=== PATIENT | female | born 1935 | race Caucasian/White ===

== ENCOUNTER 2019-11-07 02:20 | Observation (INO) | payer MEDICARE, BC ==
[2019-11-07] MEDS ORDERED: Sodium Chloride 0.9% 10 ML Syringe FLUSH PRN (02:30)
[2019-11-07] MEDS: Sodium Chloride 0.9% 1,000 ML IV SCH ×2 (03:01→07:41)
[2019-11-07] MEDS: Ondansetron 4 MG/2 ML SDV IVPUSH ONE (03:03)
--- NOTE | 2019-11-07 03:04 | EDM.PDOC ---
ED HPI GENERAL MEDICAL PROBLEM - General Stated Complaint: PASSED OUT Time Seen by Provider: 11/07/19 02:35 History Limitations: Reports: No Limitations - History of Present Illness INITIAL COMMENTS - FREE TEXT/NARRATIVE: Raysa presented having passed out. Her daughter witnessed two episodes a few minutes apart,while trying to get out of bed.It lasted seconds,but she appeared to be stretching,and having a seizure like activity.She complains of active diarrhea and vomiting since last evening.No fever,SOB,or chest pain.Raysa has a a h/o IBS,and a similar presentation of syncope 2 years ago while living in [place]. - Related Data Allergies Allergy/AdvReac Type Severity Reaction Status Date / Time Penicillins Allergy Rash Verified 11/07/19 03:10 Home Meds: Home Meds NK [No Known Home Meds] 11/07/19 [History] ED ROS GENERAL - Review of Systems Review Of Systems: Comprehensive ROS is negative, except as noted in HPI. ED EXAM, GI/ABD - Physical Exam Exam: See Below Exam Limited By: No Limitations General Appearance: Alert, Active Emesis Eyes: Bilateral: Normal Appearance, EOMI Ears: Normal External Exam, Normal Canal, Hearing Grossly Normal, Normal TMs Nose: Normal Inspection, Normal Mucosa, No Blood Throat/Mouth: Normal Inspection, Normal Lips, Normal Teeth, Normal Gums, Normal Oropharynx, Normal Voice, No Airway Compromise Head: Atraumatic Neck: Normal Inspection Respiratory/Chest: No Respiratory Distress, Lungs Clear Cardiovascular: Systolic Murmur. No: No Murmur, Tachycardia GI/Abdominal Exam: Soft, Non-Tender Extremities: Normal Inspection Neurological: Alert Psychiatric: Normal Affect Skin Exam: Warm Lymphatic: No Adenopathy EKG INTERPRETATION Rhythm: NSR Course - Orders/Labs/Meds Orders: Active Orders 24 hr Category Date Time Status EKG Documentation Completion [RC] ASDIRECTED Care 11/07/19 02:30 Active Sodium Chloride 0.9% [Normal Saline] 1,000 ml Med 11/07/19 03:00 Active IV ASDIRECTED Sodium Chloride 0.9% [Saline Flush] Med 11/07/19 02:30 Active 10 ml FLUSH ASDIRECTED PRN Peripheral IV Insertion Adult [OM.PC] Routine Oth 11/07/19 02:30 Ordered EKG 12 Lead [EK] Routine Ther 03/13/20 02:29 Ordered Medication Orders Sodium Chloride (Normal Saline) 1,000 mls @ 500 mls/hr IV ASDIRECTED MICHAEL Sodium Chloride (Saline Flush) 10 ml FLUSH ASDIRECTED PRN PRN Reason: Keep Vein Open Labs: Laboratory Tests 11/07/19 11/07/19 11/07/19 Range/Units 02:40 02:40 02:40 WBC 12.3 H (4.5-12.0) X10-3/uL RBC 4.85 (3.23-5.20) x10(6)uL Hgb 14.0 (11.5-15.5) g/dL Hct 42.4 (30.0-51.3) % MCV 87.5 (80-96) fL MCH 28.9 (27.7-33.6) pg MCHC 33.1 (32.2-35.4) g/dL RDW 13.6 (11.5-15.5) % Plt Count 249 (125-369) X10(3)uL MPV 9.1 (7.4-10.4) fL Neut % (Auto) 86.8 H (46-82) % Lymph % (Auto) 9.2 L (13-37) % [place] % (Auto) 2.5 L (4-12) % Eos % (Auto) 1 (1.0-5.0) % Baso % (Auto) 1 (0-2) % Neut # (Auto) 10.7 H (1.6-8.3) # Lymph # (Auto) 1.1 (0.6-5.0) # [place] # (Auto) 0.3 (0.0-1.3) # Eos # (Auto) 0.1 (0.0-0.8) # Baso # (Auto) 0.1 (0.0-0.2) # Sodium 139 (135-145) mmol/L Potassium 4.2 (3.5-5.3) mmol/L Chloride 101 (100-110) mmol/L Carbon Dioxide 25 (21-32) mmol/L BUN 16 (7-18) mg/dL Creatinine 0.9 (0.55-1.02) mg/dL Est Cr Clr Drug Dosing TNP Estimated GFR (MDRD) 60 (>60) BUN/Creatinine Ratio 17.8 (9-20) Glucose 183 H (80-116) mg/dL Calcium 8.8 (8.6-10.2) mg/dL Total Bilirubin 0.7 (0.1-1.3) mg/dL AST 14 (5-25) IU/L ALT 16 (12-36) U/L Alkaline Phosphatase 96 (56-112) IU/L Troponin I < 4.0 L (4.0-60.3) pg/mL Total Protein 8.0 (6.0-8.0) g/dL Albumin 3.9 (3.2-4.6) g/dL Globulin 4.1 g/dL Albumin/Globulin Ratio 1.0 Meds: Medications Generic Name Dose Route Start Last Admin Trade Name Freq PRN Reason Stop Dose Admin Sodium Chloride 1,000 mls @ 500 mls/hr 11/07/19 03:00 Normal Saline IV ASDIRECTED MICHAEL Sodium Chloride 10 ml 11/07/19 02:30 Saline Flush FLUSH ASDIRECTED PRN Keep Vein Open Discontinued Medications Generic Name Dose Route Start Last Admin Trade Name Freq PRN Reason Stop Dose Admin Ondansetron HCl 4 mg 11/07/19 02:48 Zofran IVPUSH 11/07/19 02:49 ONETIME ONE Departure - Departure Time of Disposition: 03:14 Disposition: Refer to Observation Clinical Impression: Vasovagal syncope, Acute gastroenteritis - Discharge Information Referrals: PCP,None [Primary Care Provider] - Sepsis Event Note - Focused Exam Date Exam was Performed: 11/07/19 Time Exam was Performed: 03:12 - Problem List & Annotations (1) Vasovagal syncope SNOMED Code(s): 143269405 Code(s): R55 - SYNCOPE AND COLLAPSE Status: Acute Current Visit: Yes (2) Acute gastroenteritis SNOMED Code(s): 74836593 Code(s): K52.9 - NONINFECTIVE GASTROENTERITIS AND COLITIS, UNSPECIFIED Status: Acute Current Visit: Yes - Problem List Review Problem List Initiated/Reviewed/Updated: Yes - My Orders Last 24 Hours: My Active Orders 11/07/19 02:29 EKG 12 Lead [EK] Routine 11/07/19 02:30 EKG Documentation Completion [RC] ASDIRECTED Sodium Chloride 0.9% [Saline Flush] 10 ml FLUSH ASDIRECTED PRN Peripheral IV Insertion Adult [OM.PC] Routine 11/07/19 03:00 Sodium Chloride 0.9% [Normal Saline] 1,000 ml IV ASDIRECTED - Assessment/Plan Last 24 Hours: My Active Orders 11/07/19 02:29 EKG 12 Lead [EK] Routine 11/07/19 02:30 EKG Documentation Completion [RC] ASDIRECTED Sodium Chloride 0.9% [Saline Flush] 10 ml FLUSH ASDIRECTED PRN Peripheral IV Insertion Adult [OM.PC] Routine 11/07/19 03:00 Sodium Chloride 0.9% [Normal Saline] 1,000 ml IV ASDIRECTED Plan: Admit,with remote tele. CT in AM.Fluids,Zofran. NPO
[2019-11-07] MEDS ORDERED: Ondansetron 4 MG/2 ML SDV IV PRN (03:15)
--- NOTE | 2019-11-07 10:00 | CT ---
INDICATION: Syncopal episode last night, question seizure. CT HEAD WITHOUT CONTRAST: Spiral 2.75 mm axial sections were obtained through the brain without contrast with sagittal and coronal reconstructions, 11/07/19 - no comparisons. Total exam DLP was 1244.99 mGy-cm. [id number] degenerative changes are noted at the odonto-atlantean joint. The paranasal sinuses were well aerated. The mastoid air cells were well aerated. No definite cranial abnormality was seen. Calcifications are noted in the internal carotid arteries. The orbits appear to be intact. No shift in midline structures was identified. The ventricles are somewhat prominent, the right lateral ventricle more so than the left, compatible with central atrophy of a mild degree, and the patient's age. There is suggestion of some very minimal areas of decreased density in the white matter, which may represent a mild degree of microvascular disease. However, no bleeding, hematoma or definite acute intracranial abnormality was identified otherwise. IMPRESSION: 1. No acute intracranial abnormality. 2. Cerebral vascular disease with question of very minimal microvascular disease-type changes in the white matter. 3. Central atrophy asymmetrical with more atrophic change suggested on the right with asymmetry of the lateral ventricles. Report was called to Dr. Bartholomew at 09:31 hours. [facility]ITAL[facility]
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
== END 2019-11-07 12:20 | disposition home or self-care (01) ==
LOC: FB.ED 02:20 → FB.MS 03:20
PROVIDERS: ADMIT Family Medicine; ATTEND Family Medicine
DX: A05.9 Bacterial foodborne intoxication, unspecified (principal); R55 Syncope and collapse; E66.9 Obesity, unspecified; Z88.0 Allergy status to penicillin; Z88.8 Allergy status to other drugs, medicaments and biological substances; Z68.30 Body mass index [BMI] 30.0-30.9, adult; Z90.49 Acquired absence of other specified parts of digestive tract; Z98.890 Other specified postprocedural states
CPT/HCPCS: 36415; 70450; 80048; 80053; 84484; 85025; 93005; 96361; 96374; 99234; 99284; 99285-25; G0378; J2405; J7030

== ENCOUNTER 2022-01-26 10:26 | Emergency (ER) | payer MEDICARE, OTHER ==
[2022-01-26] MEDS ORDERED: Ketorolac 30 MG/ML SDV IM ONE (10:59)
[2022-01-26] MEDS ORDERED: traMADol 50 MG Tab PO ONE (10:59)
[2022-01-26] MEDS ORDERED: Acetaminophen 500 MG Tab PO ONE (10:59)
[2022-01-26] MEDS ORDERED: Ondansetron 4 MG Tab.DIS PO STA (11:01)
[2022-01-26] MEDS ORDERED: Promethazine 25 MG/ML SDV IM SCH ×2 (12:15)
== END 2022-01-26 13:35 | disposition home or self-care (01) ==
LOC: FB.ED 10:26
DX: G89.29 Other chronic pain (principal); M54.42 Lumbago with sciatica, left side; E66.9 Obesity, unspecified; Z68.30 Body mass index [BMI] 30.0-30.9, adult; Z88.5 Allergy status to narcotic agent; Z88.0 Allergy status to penicillin; Z79.899 Other long term (current) drug therapy; Z90.49 Acquired absence of other specified parts of digestive tract; Z90.710 Acquired absence of both cervix and uterus
CPT/HCPCS: 96372; 99283; 99284; A9270-GY; J1885; J2550; Q0162

== ENCOUNTER 2022-01-26 20:37 | Emergency (ER) | payer MEDICARE, OTHER ==
[2022-01-26] MEDS ORDERED: Sodium Chloride 0.9% 10 ML Syringe FLUSH PRN (21:19)
[2022-01-26] MEDS ORDERED: Ondansetron 4 MG/2 ML SDV IVPUSH ONE (21:20)
[2022-01-26] MEDS ORDERED: Sodium Chloride 0.9% 1,000 ML IV SCH (21:30)
== END 2022-01-26 23:40 | disposition home or self-care (01) ==
LOC: FB.ED 20:37
DX: M54.41 Lumbago with sciatica, right side (principal); T40.425A Adverse effect of tramadol, initial encounter; E66.9 Obesity, unspecified; Z68.30 Body mass index [BMI] 30.0-30.9, adult; Z88.0 Allergy status to penicillin; Z88.5 Allergy status to narcotic agent
CPT/HCPCS: 36415; 80048; 85025; 96374; 99284-25; J2405; J3490; J7030

== ENCOUNTER 2023-02-28 12:17 | Inpatient (IN) | payer MEDICARE, OTHER ==
[2023-02-28 13:01] LABS: BASOPHILS ABSOLUTE AUTO 0.1 x10-3/uL (0.0-0.1); BASOPHILS PERCENT AUTO 0.7 % (0.2-1.5); EOSINOPHILS PERCENT AUTO 0.2 % (0.6-8.1); HEMOGLOBIN 12.7 g/dL (11.4-15.5); LYMPHOCYTES PERCENT AUTO 20.8 % (18.4-52.1); MEAN CORPUSCULAR HEMOGLOBIN 29.4 pg (23.9-33.9); MEAN CORPUSCULAR HGB CONC 34.4 g/dL (31.9-34.8); MEAN CORPUSCULAR VOLUME 85.4 fL (76.7-100.5); MEAN PLATELET VOLUME 9.1 fL (7.1-12.4); MONOCYTES ABSOLUTE AUTO 0.5 x10-3/uL (0.3-1.0); MONOCYTES PERCENT AUTO 5.6 % (4.4-15.7); NEUTROPHILS ABSOLUTE AUTO 6.8 x10-3/uL (1.5-6.3); NEUTROPHILS PERCENT AUTO 72.7 % (30.8-76.2); PLATELET COUNT,PLT 241 x10(3)uL (151-488); RED BLOOD CELL COUNT 4.33 x10(6)uL (3.60-5.20); RED CELL DISTRIBUTION WIDTH 13.3 % (12.3-16.5); WHITE BLOOD CELL COUNT,WBC 9.4 x10-3/uL (3.0-10.3)
[2023-02-28 13:09] LABS: ALANINE AMINOTRANSFERASE,ALT 16 U/L (12-36); ALBUMIN 3.7 g/dL (3.2-4.6); ALKALINE PHOSPHATASE 80 IU/L (56-112); ASPARTATE AMNIOTRANSFERASE,AST 16 IU/L (5-25); BILIRUBIN TOTAL 0.8 mg/dL (0.1-1.3); BLOOD UREA NITROGEN,BUN 7 mg/dL (7-18); BUN/CREATININE RATIO 11.7 (9-20); CALCIUM 8.7 mg/dL (8.6-10.2); CARBON DIOXIDE,CO2 25 mmol/L (21-32); CREATININE 0.6 mg/dL (0.55-1.02); ESTIMATED GFR 87 mL/min (>60); GLUCOSE RANDOM 122 mg/dL (80-116); MAGNESIUM 1.6 mg/dL (1.8-2.5); POTASSIUM,K 3.9 mmol/L (3.5-5.3); PROTEIN TOTAL,TP 7.5 g/dL (6.0-8.0)
[2023-02-28 13:11] LABS: CHLORIDE,CL 82 mmol/L (100-110); SODIUM,NA 116 mmol/L (135-145)
[2023-02-28 13:27] LABS: BILIRUBIN,URINE NEGATIVE (NEGATIVE); GLUCOSE,URINE NORMAL (NORMAL); KETONES,URINE 15 mg/dL (NEGATIVE); LEUKOCYTE ESTERASE,URINE NEGATIVE (NEGATIVE); NITRITE,URINE NEGATIVE (NEGATIVE); OCCULT BLOOD,URINE MODERATE (NEGATIVE); PROTEIN,URINE NEGATIVE (NEGATIVE); UROBILINOGEN,URINE NORMAL (NEGATIVE)
[2023-02-28] MEDS ORDERED: Sodium Chloride 0.9% 1,000 ML IV SCH (13:30)
[2023-02-28] MEDS ORDERED: Ondansetron 4 MG/2 ML SDV IVPUSH ONE (13:30)
[2023-02-28] MEDS ORDERED: Morphine 2 MG/ML SYRINGE IVPUSH ONE (13:30)
[2023-02-28 13:39] LABS: APPEARANCE,URINE CLEAR (CLEAR); BACTERIA,URINE FEW (NS); COLOR,URINE YELLOW (YELLOW); RBC,URINE 0-5 (0-5); SQUAMOUS EPITHELIAL CELLS,UR FEW (NS,R,O); WBC,URINE 0-5 (0-5)
[2023-02-28] MEDS ORDERED: Ketorolac 30 MG/ML SDV IVPUSH ONE (15:38)
[2023-02-28] MEDS ORDERED: fentaNYL 100 MCG/2 ML SDV IVPUSH ONE (16:12)
[2023-02-28] MEDS ORDERED: Naloxone 0.4 MG/ML SDV IVPUSH PRN ×2 (16:12→17:55)
[2023-02-28] MEDS ORDERED: Lidocaine 4% 1 each Patch TOP ONE (16:32)
[2023-02-28] MEDS ORDERED: Ketorolac 15 MG/ML SDV IVPUSH PRN (17:41)
[2023-02-28] MEDS ORDERED: Magnesium Sulfate/Water 2 GM in Premix Bag 1 BAG IV ONE (17:51)
[2023-02-28] MEDS ORDERED: fentaNYL 100 MCG/2 ML SDV IVPUSH PRN (17:55)
[2023-02-28] MEDS: Enoxaparin 40 MG/0.4 ML Syringe SUBCUT SCH (18:22)
[2023-02-28] MEDS: traMADol 50 MG Tab PO PRN (22:24)
[2023-02-28] MEDS ORDERED: SODIUM CHLORIDE 3% IV SCH (23:15)
[2023-02-28] MEDS: Ondansetron 4 MG/2 ML SDV IV PRN (23:38)
[2023-02-28] MEDS: Sodium Chloride 0.9% 10 ML Syringe FLUSH PRN (23:43)
[2023-02-28] MEDS ORDERED: Sodium Chloride 3% 500 ML IV ONE (23:45)
[2023-03-01] MEDS: traMADol 50 MG Tab PO PRN ×3 (04:10→21:44)
[2023-03-01 06:35] LABS: BASOPHILS ABSOLUTE AUTO 0.1 x10-3/uL (0.0-0.1); BASOPHILS PERCENT AUTO 0.8 % (0.2-1.5); EOSINOPHILS PERCENT AUTO 0.5 % (0.6-8.1); HEMATOCRIT 35.9 % (34.2-48.2); HEMOGLOBIN 12.3 g/dL (11.4-15.5); LYMPHOCYTES ABSOLUTE AUTO 2.1 x10-3/uL (1.0-4.4); MEAN CORPUSCULAR HEMOGLOBIN 29.2 pg (23.9-33.9); MEAN CORPUSCULAR HGB CONC 34.2 g/dL (31.9-34.8); MEAN CORPUSCULAR VOLUME 85.4 fL (76.7-100.5); MEAN PLATELET VOLUME 9.2 fL (7.1-12.4); MONOCYTES PERCENT AUTO 10.8 % (4.4-15.7); NEUTROPHILS PERCENT AUTO 64.9 % (30.8-76.2); PLATELET COUNT,PLT 220 x10(3)uL (151-488); RED BLOOD CELL COUNT 4.21 x10(6)uL (3.60-5.20); RED CELL DISTRIBUTION WIDTH 13.4 % (12.3-16.5); WHITE BLOOD CELL COUNT,WBC 9.3 x10-3/uL (3.0-10.3)
[2023-03-01 06:39] LABS: BLOOD UREA NITROGEN,BUN 8 mg/dL (7-18); BUN/CREATININE RATIO 13.3 (9-20); CALCIUM 8.2 mg/dL (8.6-10.2); CARBON DIOXIDE,CO2 27 mmol/L (21-32); CREATININE 0.6 mg/dL (0.55-1.02); EST CRCL DRUG DOSING (CG) 48.34 mL/min; ESTIMATED GFR 87 mL/min (>60); GLUCOSE RANDOM 108 mg/dL (80-116); POTASSIUM,K 3.6 mmol/L (3.5-5.3); SODIUM,NA 120 mmol/L (135-145)
[2023-03-01 06:43] LABS: CHLORIDE,CL 86 mmol/L (100-110)
[2023-03-01] MEDS ORDERED: Lidocaine 4% 1 each Patch TOP SCH (09:00)
[2023-03-01] MEDS: Potassium Phosphate,Mb-Db/Sodium Phosphate,Mb-Db Packet PO SCH ×2 (11:19→21:44)
[2023-03-01] MEDS: Calcium Carbonate 500 MG Tablet PO SCH (11:20)
[2023-03-01 12:26] LABS: BLOOD UREA NITROGEN,BUN 9 mg/dL (7-18); BUN/CREATININE RATIO 12.9 (9-20); CALCIUM 8.6 mg/dL (8.6-10.2); CARBON DIOXIDE,CO2 27 mmol/L (21-32); CREATININE 0.7 mg/dL (0.55-1.02); EST CRCL DRUG DOSING (CG) 41.44 mL/min; ESTIMATED GFR 84 mL/min (>60); GLUCOSE RANDOM 150 mg/dL (80-116); POTASSIUM,K 4.1 mmol/L (3.5-5.3); SODIUM,NA 121 mmol/L (135-145)
[2023-03-01 12:27] LABS: CHLORIDE,CL 87 mmol/L (100-110)
[2023-03-01] MEDS ORDERED: Lidocaine 4% 1 each Patch TOP ONE (14:18)
[2023-03-01] MEDS: Sodium Chloride 0.9% 1,000 ML IV SCH (17:15)
[2023-03-01] MEDS: Enoxaparin 40 MG/0.4 ML Syringe SUBCUT SCH (18:21)
[2023-03-01] MEDS: Sodium Chloride 0.9% 10 ML Syringe FLUSH PRN (21:47)
[2023-03-02] MEDS: Sodium Chloride 0.9% 1,000 ML IV SCH (04:10)
[2023-03-02] MEDS ORDERED: Pantoprazole 40 MG Tab.CR PO SCH (06:00)
[2023-03-02 06:48] LABS: BASOPHILS ABSOLUTE AUTO 0.1 x10-3/uL (0.0-0.1); EOSINOPHILS ABSOLUTE AUTO 0.1 x10-3/uL (0.0-0.8); EOSINOPHILS PERCENT AUTO 0.9 % (0.6-8.1); HEMATOCRIT 35.5 % (34.2-48.2); HEMOGLOBIN 12.2 g/dL (11.4-15.5); LYMPHOCYTES ABSOLUTE AUTO 2.6 x10-3/uL (1.0-4.4); LYMPHOCYTES PERCENT AUTO 35.9 % (18.4-52.1); MEAN CORPUSCULAR HEMOGLOBIN 29.7 pg (23.9-33.9); MEAN CORPUSCULAR HGB CONC 34.2 g/dL (31.9-34.8); MEAN CORPUSCULAR VOLUME 86.6 fL (76.7-100.5); MEAN PLATELET VOLUME 9.4 fL (7.1-12.4); MONOCYTES ABSOLUTE AUTO 0.9 x10-3/uL (0.3-1.0); MONOCYTES PERCENT AUTO 12.9 % (4.4-15.7); NEUTROPHILS ABSOLUTE AUTO 3.5 x10-3/uL (1.5-6.3); NEUTROPHILS PERCENT AUTO 49.3 % (30.8-76.2); PLATELET COUNT,PLT 225 x10(3)uL (151-488); RED CELL DISTRIBUTION WIDTH 13.7 % (12.3-16.5); WHITE BLOOD CELL COUNT,WBC 7.1 x10-3/uL (3.0-10.3)
[2023-03-02 06:53] LABS: BLOOD UREA NITROGEN,BUN 11 mg/dL (7-18); BUN/CREATININE RATIO 15.7 (9-20); CALCIUM 8.3 mg/dL (8.6-10.2); CARBON DIOXIDE,CO2 28 mmol/L (21-32); CHLORIDE,CL 96 mmol/L (100-110); CREATININE 0.7 mg/dL (0.55-1.02); EST CRCL DRUG DOSING (CG) 41.44 mL/min; ESTIMATED GFR 84 mL/min (>60); GLUCOSE RANDOM 95 mg/dL (80-116); POTASSIUM,K 3.8 mmol/L (3.5-5.3); SODIUM,NA 131 mmol/L (135-145)
[2023-03-02] MEDS: Potassium Phosphate,Mb-Db/Sodium Phosphate,Mb-Db Packet PO SCH (08:00)
[2023-03-02] MEDS: Calcium Carbonate 500 MG Tablet PO SCH (08:00)
[2023-03-02] MEDS ORDERED: Lidocaine 4% 1 each Patch TOP SCH (09:00)
[2023-03-02] MEDS: Ondansetron 4 MG/2 ML SDV IV PRN (10:05)
== END 2023-03-02 10:33 | disposition home or self-care (01) | DRG 645 ==
LOC: FB.ED 12:17 → FB.MS 17:50
PROVIDERS: ADMIT Student in an Organized Health Care Education/Training Program; ATTEND Family Medicine
DX: E22.2 Syndrome of inappropriate secretion of antidiuretic hormone (principal); G89.29 Other chronic pain; R11.2 Nausea with vomiting, unspecified; M81.0 Age-related osteoporosis without current pathological fracture; M47.816 Spondylosis without myelopathy or radiculopathy, lumbar region; R19.5 Other fecal abnormalities; M46.1 Sacroiliitis, not elsewhere classified; K58.9 Irritable bowel syndrome, unspecified; M48.061 Spinal stenosis, lumbar region without neurogenic claudication; M54.42 Lumbago with sciatica, left side; M54.41 Lumbago with sciatica, right side; E83.42 Hypomagnesemia; E66.9 Obesity, unspecified; H91.93 Unspecified hearing loss, bilateral; M51.36 Other intervertebral disc degeneration, lumbar region; Z96.643 Presence of artificial hip joint, bilateral; Z88.5 Allergy status to narcotic agent; Z88.0 Allergy status to penicillin; Z90.710 Acquired absence of both cervix and uterus; Z90.49 Acquired absence of other specified parts of digestive tract; Z98.890 Other specified postprocedural states; Z99.81 Dependence on supplemental oxygen; Z79.899 Other long term (current) drug therapy; Z98.42 Cataract extraction status, left eye; Z98.41 Cataract extraction status, right eye; Z68.29 Body mass index [BMI] 29.0-29.9, adult
CPT/HCPCS: 36415; 74176; 80048; 80053; 81001; 83735; 83930; 83935; 84295; 84300; 85025; 96361; 96374; 96375; 99222; 99238; 99285-25; A9270-GY; J1650; J1885; J2270; J2405; J3010; J3475; J3490; J7030; J7131

== ENCOUNTER 2025-07-08 17:38 | Emergency (ER) | payer MEDICARE, OTHER | END 2025-07-08 20:45 | disposition home or self-care (01) | LOC: FB.ED 17:38 | DX: S61.216A Laceration without foreign body of right little finger without damage to nail, initial encounter (principal); E66.9 Obesity, unspecified; Z88.0 Allergy status to penicillin; Z88.8 Allergy status to other drugs, medicaments and biological substances; Z79.899 Other long term (current) drug therapy; Z90.49 Acquired absence of other specified parts of digestive tract; Z90.710 Acquired absence of both cervix and uterus; W45.8XXA Other foreign body or object entering through skin, initial encounter | CPT/HCPCS: 12001; 73140-F9; 99283 ==